=== PATIENT | female | born 1950 | race American Indian/Alaskan Native ===

== ENCOUNTER 2017-06-04 12:08 | Emergency (ER) | payer BC, MEDICAID ==
[2017-06-04 12:35] VITALS: BMI 33.6
[2017-06-04 12:39] VITALS: BP 122/74; PULSE 57; RESP 16; TEMP 97.6; O2SAT 100
--- NOTE | 2017-06-04 13:19 | ED PDOC ---
Arrival/HPI - General Chief Complaint: Eye Problem Time Seen by Provider: 06/04/17 12:55 Historian: Patient - History of Present Illness Narrative History of Present Illness (Text): 06/04/17 66 YO female come in for evaluation of left eye swelling and mild discomfort developed since yesterday. Pt reports, ' was in park with my grandchildren and some water fall fell onto my left eye area". Pt sts, today, woke up and noted some swelling around left eye. Otherwise, pt denies fever, chills, headache, dizziness, blurry vision or any other changes in vision, denies double vision, floaters, curtain falling on eye, denies eye discharge, denies pain or discomfort on periorbital movement, denies neck pain, focal deficits, denies nay other active complaints. Ambulate to ED for evaluation, not in any apparent distress. Pt admits, took Aleeve this Am with mild relieve in pain. Past Medical History - Provider Review Nursing Documentation Reviewed: Yes - Travel History Have you recently traveled outside [place] w/in the past 3 mons?: No - Infectious Disease Hx of Infectious Diseases: None - Tetanus Immunization Tetanus Immunization: Unknown - Reproductive Menopause: Yes - Cardiac Hx Hypertension: Yes - Gastrointestinal Hx Gastroesophageal Reflux: Yes - Psychiatric Hx Substance Use: No - Surgical History Other/Comment: R knee. L foot. L knee miniscus - Anesthesia Hx Anesthesia Reactions: No Hx Malignant Hyperthermia: No Family/Social History - Physician Review Nursing Documentation Reviewed: Yes Family/Social History: No Known Family HX Smoking Status: Never Smoked Hx Alcohol Use: No Hx Substance Use: No Allergies/Home Meds Allergies/Adverse Reactions: Allergies amlodipine Allergy (Verified 06/04/17 12:40) SWELLING Review of Systems - Review of Systems Constitutional: Normal Eyes: Eye Pain. absent: Vision Changes, Photophobia ENT: Normal Respiratory: Normal Cardiovascular: Normal Gastrointestinal: Normal Genitourinary Female: Normal Musculoskeletal: Normal Skin: Normal Neurological: Normal Endocrine: Normal Hemo/Lymphatic: Normal Psychiatric: Normal Physical Exam Vital Signs Reviewed: Yes Vital Signs Temp Pulse Resp BP Pulse Ox 06/04/17 12:08 97.6 F 57 L 16 122/74 100 Temperature: Afebrile Blood Pressure: Normal Pulse: Regular Respiratory Rate: Normal Appearance: Positive for: Well-Appearing, Non-Toxic, Comfortable Pain Distress: None Mental Status: Positive for: Alert and Oriented X 3 - Systems Exam Head: Present: Atraumatic Pupils: Present: PERRL Extroacular Muscles: Present: EOMI (no pain or limitation on extraocular movement B/L) Conjunctiva: Present: Injected (mild injection noted to left eye with mild periorbital edema. No discharge, no periorbital cellulitis or tenderness, or palpable deformity.) Ears: Present: Normal Mouth: Present: Moist Mucous Membranes, Normal Lips. No: Drooling Pharnyx: No: ERYTHEMA Nose (External): Present: Atraumatic Neck: Present: Trachea Midline, Other (no carotid bruit). No: MIDLINE TENDERNESS, Paraspinal Tenderness, JVD Upper Extremity: Present: Normal ROM. No: Deformity Lower Extremity: Present: Normal ROM. No: Swelling, Deformity Neurological: Present: GCS=15, Speech Normal, Normal Sensory Function, Gait Normal Skin: Present: Warm, Dry, Normal Color. No: Rashes Psychiatric: Present: Alert, Oriented x 3 Medical Decision Making ED Course and Treatment: 06/04/17 13:02 Case discussed with ED attending , and discharge with outpt f/u recommend at present time. [id number] office called and outpt f/u scheduled for today at any time before 6PM for further evaluation and tx. On re-eval, pt is afebrile, hemodynamicaly stable. Non-toxic. Neurologicaly intact. Pt understand discharge and agrees with immediate F/U now. Stable for discharge now. Disposition/Present on Arrival - Present on Arrival Any Indicators Present on Arrival: No History of DVT/PE: No History of Uncontrolled Diabetes: No Urinary Catheter: No History of Decub. Ulcer: No History Surgical Site Infection Following: None - Disposition Have Diagnosis and Disposition been Completed?: Yes Diagnosis: Conjunctivitis, Eye contusion Disposition: HOME/ ROUTINE Disposition Time: 13:16 Patient Plan: Discharge Patient Problems: Current Active Problems Problem Status Onset Conjunctivitis Acute Eye contusion Acute Condition: STABLE Discharge Instructions (ExitCare): Conjunctivitis (ED) Additional Instructions: FOLLOW UP WITH TODAY AT ANY TIME BEFORE 6PM FOR IMMEDIATE RE- EVALUATION AND FURTHER TREATMENT. USE MEDICATION PRESCRIBED FOLLOW UP WITH OPHTHALMOLOGY IN 1-2 DAYS FOR RE-EVALUATION. RETURN TO ED IF ANY WORSENING OR NEW CHANGES. Prescriptions: Neomycin/Polymyxin/Dexamethaso [Dexamethasone/Neomycin/Polymyxin 5 Ml] 1 drop LEFTEYE Q6 #1 bottle Referrals: Kerwin Dove MD [Staff Provider] - Follow up with primary
== END 2017-06-04 13:20 | disposition home or self-care (01) ==
LOC: ED 12:08
DX: S00.12XA Contusion of left eyelid and periocular area, initial encounter (principal); X58.XXXA Exposure to other specified factors, initial encounter; Y93.89 Activity, other specified; Y92.830 Public park as the place of occurrence of the external cause; H10.9 Unspecified conjunctivitis